=== PATIENT | male | born 1945 ===

== ENCOUNTER 2023-01-24 18:00 | Outpatient (CLI) | payer MEDICARE, BC | END 2023-01-24 18:01 | disposition home or self-care (01) | LOC: SLEEPLAB 18:00 | PROVIDERS: ATTEND Internal Medicine Critical Care Medicine | DX: G47.33 Obstructive sleep apnea (adult) (pediatric) (principal); R53.83 Other fatigue; R06.83 Snoring | CPT/HCPCS: 95800 ==

== ENCOUNTER → 2023-04-18 | Outpatient (CLI) | payer MEDICARE, BC | LOC: SLEEPLAB 17:00 | PROVIDERS: ATTEND Internal Medicine Critical Care Medicine | DX: G47.33 Obstructive sleep apnea (adult) (pediatric) (principal); R06.83 Snoring; G47.00 Insomnia, unspecified; R53.83 Other fatigue | CPT/HCPCS: 95811 ==